=== PATIENT | female | born 1970 | race Caucasian/White ===

== ENCOUNTER → 2016-09-19 | Outpatient (CLI) | payer OTHER ==
--- NOTE | 2016-09-19 10:10 | MA ---
Screening Digital Mammogram With Tomosynthesis Clinical Indications: Routine screening. Technique: Standard digital cephalocaudal and tomosynthesis mediolateral oblique projections are obt ained. The digital images are processed by the [employer] computer aided detection system. Comparison: July 2015, May 2014, March 2013 Breast density: C; The breast tissue is heterogeneously dense, which could obscure detection of small masses. Findings: CAD was reviewed. No suspicious findings are identified. Impression: Negative mammogram. BI-RADS 1. Recommendation: Routine screening is recommended in one year, as long as physical examination is vidal ign in this patient with moderately dense breast parenchyma. Results were communicated to the patient at the time of the examination. We will proceed to screening breast ultrasound as ordered. [facility] will send a result letter to the patient. Negative mammography should not preclude additional workup of a clinically suspicious finding. The patient's information is entered into a reminder system with a target due date for her next mammo gram.
--- NOTE | 2016-09-19 10:42 | US ---
Bilateral Screening Breast Ultrasound History: Screening Technique: I first performed a directed physical examination. This was followed by ultrasound exam with a high frequency linear transducer. Findings: No sonographic abnormality identified in either breast. Specifically no abnormality in the upper right breast where the patient has the densest breast tissue. Impression: Negative ultrasound screening Recommendation: Screening in 1 year. BI-RADS 1 negative. Results and recommendations discussed with the patient at the time of the examination.
== END ==
LOC: FIMAGING 09:33
DX: R92.8 Other abnormal and inconclusive findings on diagnostic imaging of breast (principal)
CPT/HCPCS: G0202

== ENCOUNTER 2017-04-02 11:44 | Day surgery (SDC) | payer OTHER ==
[2017-04-02] MEDS ORDERED: ONDANSETRON 4 MG/2 ML VIAL ONE (12:30)
--- NOTE | 2017-04-02 12:58 | PDGENHP ---
History & Physical Chief Complaint: Fecal incontinence History of Present Illness: Rectal pain. Fecal incontinence. Change in bowel habits Pertinent Past, Social, Family History: IBS-alternating. Anxiety. Heartburn. Hip Arthritis. Chronic hip pain Relevant Physical Exam: NAD. NC/AT. No LAD. Neck supple. Non-icteric. CTA B/ L. RRR no m/r/g. ABD Soft. NABD. NT/ND. No HSM or ascites Cardiorespiratory Assessment: ASA II. Colonoscopy
[2017-04-02] MEDS ORDERED: ONDANSETRON 4 MG/2 ML VIAL IVP ONE (13:00)
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
[2017-04-02] MEDS ORDERED: PROPOFOL/EMULSION 500 MG/50 ML BOTTLE IV ONE (13:11)
[2017-04-02] MEDS ORDERED: NALOXONE HCL 0.4 MG/ML INJ IVP PRN (13:26)
[2017-04-02] MEDS ORDERED: DEXAMETHASONE 4 MG/ML VIAL IVP PRN (13:26)
[2017-04-02 14:39] VITALS: TEMP 97.7
[2017-04-02 14:40] VITALS: BP 107/70; RESP 24; O2SAT 98
--- NOTE | 2017-04-02 14:48 | GPN ---
[f rep st] PROCEDURE NOTE PROCEDURE: 1. Colonoscopy with biopsy. 2. Colonoscopy with polypectomy. INDICATION: 1. Fecal incontinence. 2. Anorectal pain. 3. Change in bowel habits. CONSENT: The patient was consented for colonoscopy and anesthesia after the risks and benefits were discussed in detail. All questions were answered and informed consent was obtained. Procedure mon itoring is continuous per Anesthesiology protocol. COMPLICATIONS: None. ESTIMATED BLOOD LOSS: None. ANESTHESIOLOGIST: Dr. Jordan Forrester. ENDOSCOPY STAFF: Hannah Little and Francheska. DESCRIPTION OF PROCEDURE: The patient was placed into the left lateral decubitus position. A digit al rectal exam was performed before the administration of any anesthesia to assess sphincter tone in the setting of fecal incontinence. The sphincter tone was diffusely weak but mostly symmetric. Th e patient was able to mount increased sphincter tone with anal squeeze but this was also somewhat we ak and more so on the right lateral and right posterior segments of the anal canal and anal sphincte r. Propofol was then administered. No other abnormalities on the digital rectal exam were noted. The Olympus endoscope was placed into the anal canal and advanced into the terminal ilium. All muco diamond surfaces were examined in their entirety including a retroflexed view of the rectum. FINDINGS: The cecum was reached and identified by the appendiceal orifice and ileocecal valve. The terminal ilium was also intubated and visualized. The terminal ilium was normal. The mucosa of th e colon was normal in its entirety. Two small polyps were visualized in the rectum at approximately 20 cm of length from the anal verge. The 1st was approximately 7-8 mm in size and semi sessile and was removed completely with a cold s nare and retrieved. The 2nd polyp was 5 mm in size and slightly downstream from the larger rectal p olyp which was snared, and this polyp was removed with a cold biopsy technique completely. There we re also a few small scattered sigmoid diverticula noted. The colon in the lower left was somewhat r edundant with significant spasm. IMPRESSION: 1. Normal terminal ilium. 2. Slightly redundant colon in the sigmoid segment with some spasm. 3. Sigmoid diverticulosis. 4. A 7-8 mm sessile rectal polyp, removed with cold snare. 5. A 5 mm rectal polyp, removed with cold biopsy. 6. Decreased anal sphincter tone with more diminished tone on the right than left lateral quadrants of the anal sphincter. RECOMMENDATIONS: 1. Await pathology results. 2. Surveillance colonoscopy in 5 years. 3. Consider anorectal manometry for further evaluation with a decreased sphincter tone in the setti ng of her reports of fecal incontinence. 4. High-fiber diet. 5. Avoidance of all dairy products. 6. Bentyl fiber supplement once daily. 7. GI clinic follow up to discuss further evaluation and management. /[id number]/MODL
[2017-04-02 15:51] VITALS: PULSE 65
== END 2017-04-02 14:50 | disposition home or self-care (01) ==
LOC: FSGY 11:44
PROVIDERS: ATTEND Internal Medicine Gastroenterology
PROC: 0DBP8ZX Excision of Rectum, Via Natural or Artificial Opening Endoscopic, Diagnostic (ICD-10-PCS; principal; 2017-04-02 13:00)
DX: D12.8 Benign neoplasm of rectum (principal); K62.1 Rectal polyp; K57.32 Diverticulitis of large intestine without perforation or abscess without bleeding
CPT/HCPCS: J2405; J2704

== ENCOUNTER 2017-11-17 11:57 | Emergency (ER) | payer OTHER ==
[2017-11-17 12:04] VITALS: BP 98/64; PULSE 64; RESP 20; TEMP 98.6; O2SAT 98
--- NOTE | 2017-11-17 12:11 | EDPHY ---
HPI/HX/ROS/PE/MDM Narrative: CHIEF COMPLAINT: Left foot pain HPI: This patient is a healthy 47 y/o female complaining of left leg and foot pain. She recently travelled Saturday to [place], and upon her return her feet and ankles were very swollen and she state she's "never seen any edema like that in my life". She spoke to her friend, a general surgeon, about her concerns including possible DVT. Yesterday, she noted pain and numbness in her feet. This morning, she had some labored breathing and endorses increased numbness in her left leg. She occasionally has similar symptoms in her right leg due to three right hip arthroscopies, but she has not had left leg or foot pain before. She denies any known history of heart problems or history of clotting disorders. No fever chest pain, calf pain, nausea, vomiting, incontinence, difficulty walking, or other associated symptoms. REVIEW OF SYSTEMS: Aside from elements discussed in the HPI, a comprehensive 10-point review of systems was reviewed and is negative. PMH: Urticaria. Anxiety. Chronic pain. SOCIAL HISTORY: . Lives in [place]. Nonsmoker. PHYSICAL EXAM: General:Patient is alert, in no acute distress. ENT:Eyes are normal to inspection. ENT inspection normal. Neck: Normal inspection. Full range of motion. Respiratory:No respiratory distress. Breath sounds normal bilaterally. Cardiovascular: Regular rate and rhythm. Strong peripheral pulses. Normal cap refill. Abdomen:The abdomen is nontender to palpation. There are no peritoneal signs. There are normal bowel sounds. Back: Normal to inspection. No tenderness to palpation. Skin: Normal color. No rash. Warm and dry. Extremities: Normal appearance. Full range of motion. Neuro: Oriented x3. Normal motor function. Normal sensory function. ED Course: 47 y/o female presents with left foot pain and history of bilateral foot and ankle swelling following a long plane flight. Exam is unremarkable. She is very concerned regarding the possibility of DVT. Plan for labs including CBC, chemistries, troponin, D-dimer, and liver panel. Plan for EKG, chest x-ray and US lower extremities. EKG was ordered and interpreted by myself. Please see [facility] [facility] [employer] system for official reading. Chest x-ray negative for acute processes. Reviewed laboratory studies. Troponin and D-dimer negative. Otherwise largely unremarkable. 13:[address] Rowe, radiologist. US bilateral lower extremities negative for DVT. 13:30 Reassessed patient. Discussed results of imaging and laboratory studies. Plan to discharge home in good condition. She is relieved that there is no evidence of blood clot at this time. Follow up and return precautions discussed. She is comfortable with this plan. MDM: This is a healthy female who presents with mild bilateral pedal edema. We performed an extensive workup including US, LFTS, BMP and BNP. There is no evidence of liver disease, heart failure, kidney disease or DVT. The etiology of her symptoms is unclear but I see no signs of a life-threatening illness at this time. - Data Points Imaging Results: Imaging Impressions Chest X-Ray 11/17/17 12:20 Impression: Chest negative for acute cardiopulmonary abnormality. Extremity Venous Study 11/17/17 12:20 Impression: No evidence of deep vein thrombosis in either lower extremity. Results called and discussed with Valentin Peck MD on 11/17/2017 at 13:26 Laboratory Results: Laboratory Results 11/17/17 12:20 11/17/17 12:20 11/17/17 11/17/17 11/17/17 12:20 12:20 12:20 WBC 4.63 10^3/uL 10^3/uL (3.80-9.50) RBC 4.53 10^6/uL 10^6/uL (4.18-5.33) Hgb 13.6 g/dL g/dL (12.6-16.3) Hct 40.3 % % (38.0-47.0) MCV 89.0 fL fL (81.5-99.8) MCH 30.0 pg pg (27.9-34.1) MCHC 33.7 g/dL g/dL (32.4-36.7) RDW 13.1 % % (11.5-15.2) Plt Count 133 10^3/uL L 10^3/uL (150-400) MPV 10.3 fL fL (8.7-11.7) Neut % (Auto) 56.6 % % (39.3-74.2) Lymph % (Auto) 36.5 % % (15.0-45.0) [place] % (Auto) 5.2 % % (4.5-13.0) Eos % (Auto) 1.1 % % (0.6-7.6) Baso % (Auto) 0.4 % % (0.3-1.7) Nucleat RBC Rel Count 0.0 % % (0.0-0.2) Absolute Neuts (auto) 2.62 10^3/uL 10^3/uL (1.70-6.50) Absolute Lymphs (auto) 1.69 10^3/uL 10^3/uL (1.00-3.00) Absolute Monos (auto) 0.24 10^3/uL L 10^3/uL (0.30-0.80) Absolute Eos (auto) 0.05 10^3/uL 10^3/uL (0.03-0.40) Absolute Basos (auto) 0.02 10^3/uL 10^3/uL (0.02-0.10) Absolute Nucleated RBC 0.00 10^3/uL 10^3/uL (0-0.01) Immature Gran % 0.2 % % (0.0-1.1) Immature Gran # 0.01 10^3/uL 10^3/uL (0.00-0.10) D-Dimer 0.31 ug/mLFEU ug/mLFEU (0.00-0.50) Sodium 139 mEq/L mEq/L (135-145) Potassium 4.1 mEq/L mEq/L (3.5-5.2) Chloride 106 mEq/L mEq/L (97-110) Carbon Dioxide 25 mEq/l mEq/l (22-31) Anion Gap 8 mEq/L mEq/L (8-16) BUN 15 mg/dL mg/dL (7-23) Creatinine 0.8 mg/dL mg/dL (0.6-1.0) Estimated GFR > 60 Glucose 89 mg/dL mg/dL (70-100) Calcium 8.5 mg/dL mg/dL (8.5-10.4) Total Bilirubin 0.4 mg/dL mg/dL (0.1-1.4) Conjugated Bilirubin 0.2 mg/dL mg/dL (0.0-0.5) Unconjugated Bilirubin 0.2 mg/dL mg/dL (0.0-1.1) AST 33 IU/L IU/L (14-46) ALT 40 IU/L IU/L (9-52) Alkaline Phosphatase 38 IU/L IU/L (38-126) Troponin I < 0.012 ng/mL ng/mL (0.000-0.034) Total Protein 6.8 g/dL g/dL (6.3-8.2) Albumin 4.0 g/dL g/dL (3.5-5.0) General Time Seen by Provider: 11/17/17 12:08 Initial Vital Signs: Initial Vital Signs Temperature (C) 37 C 11/17/17 12:01 Heart Rate 64 11/17/17 12:01 Respiratory Rate 20 11/17/17 12:01 Blood Pressure 98/64 L 11/17/17 12:01 O2 Sat (%) 98 11/17/17 12:01 O2 Delivery Mode Room Air Allergies/Adverse Reactions: ibuprofen Allergy (Verified 11/17/17 12:00) Sulfa (Sulfonamide Antibiotics) Allergy (Verified 11/17/17 12:00) Home Medications: Medication Instructions Recorded Astrid Allergy 04/02/17 Astrid Allergy 04/02/17 Escitalopram Oxalate [Lexapro] 10 mg PO 04/02/17 Lexapro 10 MG 12.5 04/02/17 Xanax 0.5 MG (*) 0.5 mg 04/02/17 ZYRTEC 04/02/17 CLONAZEPAM 11/17/17 Departure - Departure Disposition: Home, Routine, Self-Care Clinical Impression: Bilateral edema of lower extremity Condition: Good Instructions: Leg Edema (ED) Additional Instructions: 1. Follow up with your primary care provider in 2-3 days. 2. Return to the emergency department for fever, chest pain, shortness of breath , increased pain or swelling in your legs, or other worsening of condition. Referrals: Yamileth Burns MD [Primary Care Provider] - As per Instructions Report Scribed for: Valentin Peck Report Scribed by: Cristina Campos Date of Report: 11/17/17 Time of Report: 12:10 Physician Review and Approval Statement: Portions of this note were transcribed by an ED scribe. I personally performed the history, physical exam, and medical decision making; and confirm the accuracy of the information in the transcribed note.
[2017-11-17 12:30] LABS: PLATELET COUNT 133 10^3/uL (150-400)
--- NOTE | 2017-11-17 12:34 | CPEKG ---
Heart Rate: 55 RR Interval: 1091 P-R Interval: 148 QRSD Interval: 86 QT Interval: 408 QTC Interval: 391 P [place]: 46 QRS [place]: 33 T Wave [place]: -3 EKG Severity - BORDERLINE ECG - EKG Impression: SINUS RHYTHM EKG Impression: BORDERLINE T ABNORMALITIES, ANTERIOR LEADS Electronically Signed By: Valentin Peck 17-Nov-2017 14:35:43
== END 2017-11-17 14:10 | disposition home or self-care (01) ==
DX: R60.0 Localized edema (principal)